=== PATIENT | female | born 1965 | race Caucasian/White ===

== ENCOUNTER → 2023-07-16 08:24 | Outpatient (REF) | payer OTHER, SELFPAY | LOC: HWWDC 08:24 | PROVIDERS: ATTENDING PHYSICIAN Nurse Practitioner Family | DX: Z12.31 Encounter for screening mammogram for malignant neoplasm of breast (principal) | CPT/HCPCS: 77063; 77067 ==

== ENCOUNTER → 2024-12-07 13:24 | Outpatient (REF) | payer OTHER, SELFPAY | LOC: HWRAD 13:24 | PROVIDERS: ATTENDING PHYSICIAN Urology; FAMILY PHYSICIAN Hospitalist | DX: N39.0 Urinary tract infection, site not specified (principal); M62.89 Other specified disorders of muscle; R10.2 Pelvic and perineal pain; N94.10 Unspecified dyspareunia; N95.8 Other specified menopausal and perimenopausal disorders | CPT/HCPCS: 76770; 76856 ==

== ENCOUNTER → 2025-01-15 08:04 | Outpatient (REF) | payer OTHER, SELFPAY | LOC: HWWDC 08:04 | PROVIDERS: ATTENDING PHYSICIAN Hospitalist | DX: Z12.31 Encounter for screening mammogram for malignant neoplasm of breast (principal) | CPT/HCPCS: 77063; 77067 ==